=== PATIENT | female | born 1945 | race Caucasian/White ===

== ENCOUNTER → 2018-09-22 | Outpatient (CLI) | payer MEDICARE ==
[~2018-09-22] MED LIST: IOHEXOL 350 MG/ML 100ML INFUS..BTL IV ONE; IOHEXOL-350 50ML VIAL IV ONE; IOHEXOL-350 75 ML VIAL IV ONE; LIDOCAINE HCL 2% 20ML ONE; MIDAZOLAM HCL 1 MG/ML 2ML VIAL ONE; NITROGLYCERIN 5 MG/ML 10 ML VIAL IV ONE
[2018-09-22 08:22] LABS: INR 0.92 (0.85-1.15); PROTHROMBIN TIME 9.7 SEC (9.6-11.6)
--- NOTE | 2018-09-22 09:20 | NUR ---
U/S OF THE LEFT BREAST MASS DONE. PER DR. ALEJANDRO IT IS A CALCIFICATION THAT CAN NOT BE BIOPSIED AND HAS PROBABLY BEEN THERE FOR SEVERAL YEARS AND MORE THAN LIKELY SCAR TISSUE. PATIENT INSTRUCTED AND [facility] CALLED AND INFORMED THAT PATIENT'S PREVIOUS CT SCAN SHOULD BE COMPARED TO CURRENT US REPORT AND NOTED CALCIFICATION COMPARED TO PREVIOUS IMAGES. PT DC'D HOME TO F/U WITH [facility].
== END | disposition home or self-care (01) ==
LOC: EDBD 09-02 10:00 → RAH 07:22
PROVIDERS: ATTEND Physician Assistant Medical
DX: N63.20 Unspecified lump in the left breast, unspecified quadrant (principal); I10 Essential (primary) hypertension; E78.5 Hyperlipidemia, unspecified; K21.9 Gastro-esophageal reflux disease without esophagitis; F41.9 Anxiety disorder, unspecified; Z85.528 Personal history of other malignant neoplasm of kidney; Z85.3 Personal history of malignant neoplasm of breast; Z96.60 Presence of unspecified orthopedic joint implant; R22.9 Localized swelling, mass and lump, unspecified
CPT/HCPCS: 36415; 76642; 85610; J1644; J2250; J3490 ×2; Q9967 ×3

== ENCOUNTER 2022-10-16 11:59 | Emergency (ER) | payer MEDICARE ==
[~2022-10-16] VITALS: Ht 157.5 cm; Wt 102.1 kg
[2022-10-16 13:15] LABS: BASOPHILS % (AUTO) 0.5 % (0.0-5.0); EOSINOPHILS % (AUTO) 0.6 % (0.0-8.0); LYMPHOCYTES % (AUTO) 11.4 % (21.0-51.0); MEAN CORPUSCULAR HEMOGLOBIN 30.1 pg (27.0-33.0); MEAN CORPUSCULAR HGB CONC 33.4 g/dL (32.0-36.0); MEAN CORPUSCULAR VOLUME 90.1 fL (79-99); MONOCYTES % (AUTO) 9.6 % (3.0-13.0); NEUTROPHILS % (AUTO) 77.3 % (40.0-77.0); PLATELET COUNT (AUTO) 450 K/uL (130-400); RED BLOOD CELL COUNT(AUTO) 4.55 MIL/uL (4.00-5.50); WHITE BLOOD COUNT (AUTO) 13.1 K/uL (4.8-10.8)
[2022-10-16 13:25] LABS: CREATININE 1.1 mg/dL (0.5-1.5); POTASSIUM 3.2 mmol/L (3.5-5.1)
[2022-10-16 13:30] LABS: ALBUMIN 3.9 g/dL (3.5-5.0); TOTAL PROTEIN, SERUM 7.7 g/dL (6.0-8.3)
[2022-10-16] MEDS ORDERED: KETOROLAC 60 MG VIAL (30MG/ML) IM ONE (13:30)
[2022-10-16] MEDS ORDERED: MORPHINE 2 MG SYG IM ONE (14:30)
[2022-10-16 16:16] VITALS: BP 152/72
== END 2022-10-16 16:18 | disposition home or self-care (01) ==
LOC: EDH 11:59
DX: M25.551 Pain in right hip (principal); M19.90 Unspecified osteoarthritis, unspecified site; I10 Essential (primary) hypertension; Z79.899 Other long term (current) drug therapy
CPT/HCPCS: 99284; 80053; 85025; 36415; 73522; 96372 ×2; J1885

== ENCOUNTER 2022-11-29 10:54 | Emergency (ER) | payer MEDICARE ==
[~2022-11-29] VITALS: Ht 160 cm; Wt 100.2 kg
[2022-11-29 11:41] LABS: BASOPHILS % (AUTO) 0.4 % (0.0-5.0); EOSINOPHILS % (AUTO) 7.9 % (0.0-8.0); HEMATOCRIT 28.6 % (36-48); LYMPHOCYTES % (AUTO) 16.3 % (21.0-51.0); MEAN CORPUSCULAR HEMOGLOBIN 29.7 pg (27.0-33.0); MEAN CORPUSCULAR HGB CONC 34.3 g/dL (32.0-36.0); MEAN CORPUSCULAR VOLUME 86.7 fL (79-99); MONOCYTES % (AUTO) 14.1 % (3.0-13.0); NEUTROPHILS % (AUTO) 60.8 % (40.0-77.0); PLATELET COUNT (AUTO) 377 K/uL (130-400); WHITE BLOOD COUNT (AUTO) 5.5 K/uL (4.8-10.8)
[2022-11-29 12:03] LABS: ALBUMIN 3.4 g/dL (3.5-5.0); CREATININE 1.3 mg/dL (0.5-1.5); MAGNESIUM 1.8 mg/dL (1.80-2.40); TOTAL PROTEIN, SERUM 6.3 g/dL (6.0-8.3)
[2022-11-29 12:16] LABS: B-TYPE NATRIURETIC PEPTIDE 43 pg/mL (0-100)
[2022-11-29 12:20] LABS: POTASSIUM 2.5 mmol/L (3.5-5.1)
[2022-11-29] MEDS ORDERED: POTASSIUM BICARB/CIT AC 25 MEQ TABLET.EFF ONE (12:21)
[2022-11-29] MEDS ORDERED: POTASSIUM BICARB/CIT AC 25 MEQ TABLET.EFF PO ONE ×2 (12:30)
[2022-11-29] MEDS ORDERED: LACTATED RINGERS 1000ML 1,000 ML IV ONE (12:30)
[2022-11-29 14:39] VITALS: BP 111/69
== END 2022-11-29 14:37 | disposition home or self-care (01) ==
LOC: EDH 10:54
DX: M79.89 Other specified soft tissue disorders (principal); M25.551 Pain in right hip; I10 Essential (primary) hypertension; M19.90 Unspecified osteoarthritis, unspecified site; E86.0 Dehydration; I95.9 Hypotension, unspecified; Z98.890 Other specified postprocedural states
CPT/HCPCS: 99285; 83735; 84484; 80053; 83880; 85025; 36415; 71045; 93970; 96360; J7120